=== PATIENT | male | born 1985 | race Caucasian/White ===

== ENCOUNTER 2018-06-04 15:51 | Inpatient (IN) | payer MEDICARE, MEDICAID ==
[~2018-06-04] VITALS: Ht 175.3 cm; Wt 83.9 kg
[~2018-06-04 15:51] MED LIST: BENADRYL25 MG PO; ERYTHROMYCIN E3.5 G2 OP; KETOCONAZOLE60 GM TP; PREDNISONE 10 M10 MG PO; TRAZODONE HCL100 MG PO; TRIAM60 TP; ZYRTEC ITCHY EYE5 ML OP
[2018-06-04 16:02] VITALS: BP 116/79
[2018-06-04 16:47] LABS: ABSOLUTE LYMPHOCYTES 1.4 thou/uL (0.8-5.3); ABSOLUTE MONOCYTES 0.8 thou/uL (0.0-1.2); ABSOLUTE NEUTROPHILS 2.7 thou/uL (1.6-8.1); BASOPHILS 0.2 %; EOSINOPHILS 0.2 %; HEMATOCRIT 39.9 % (42.0-52.0); HEMOGLOBIN 13.7 gm/dL (14.0-18.0); LYMPHOCYTES 27.9 %; MCHC 34.2 g/dL (28.0-37.0); MCV 90.7 fL (80.0-100.0); MONOCYTES 17.1 %; MPV 8.2 fl. (7.2-11.1); NUCLEATED RBCS 0 /100WBC; PLATELET COUNT* 106 thou/uL (150-400); POLYS 54.6 %; RDW-CV 12.7 % (10.5-14.5); WBC 4.9 thou/uL (4.0-11.0)
[2018-06-04 16:51] LABS: CALCIUM 9.1 mg/dL (8.5-10.1); CREATININE 1.3 mg/dL (0.6-1.3); POTASSIUM 3.6 mmol/L (3.5-5.1)
[2018-06-04 16:55] LABS: APTT 31.3 Seconds (25.0-31.3); INR 1.1; PROTIME 10.9 Seconds (9.20-11.50)
[2018-06-04 16:56] LABS: ALBUMIN 3.3 g/dL (3.4-5.0); TOTAL BILIRUBIN 0.6 mg/dL (<0.1-1.0); TOTAL PROTEIN 7.3 g/dL (6.4-8.2)
[2018-06-04 17:57] LABS: ESR (SEDRATE) 53 mm/hr (0-15)
[2018-06-04 19:11] LABS: URINE BLOOD NEGATIVE (Negative); URINE CLARITY CLEAR; URINE COLOR YELLOW; URINE GLUCOSE-RANDOM NEGATIVE (Negative); URINE KETONES 1+ (Negative); URINE LEUKOCYTES-REFLEX NEGATIVE (Negative); URINE NITRITE-REFLEX NEGATIVE (Negative); URINE PROTEIN NEGATIVE (Negative); URINE SPECIFIC GRAVITY 1.025 (1.005-1.030)
[2018-06-04 19:18] LABS: URINE BILIRUBIN 1+ (Negative)
[2018-06-04 19:19] LABS: ICTOTEST (BILI CONFIRMATORY) Negative (Negative)
[2018-06-04 19:42] VITALS: BP 118/73
[2018-06-04 20:39] VITALS: BP 105/78
--- NOTE | 2018-06-05 05:40 | NUR ---
REPORT RECIEVED FROM ER. PT ADMITTED TO ROOM. PT NON-VERBAL, MOTHER AND CAREGIVER AT BEDSIDE. MOTHER STATES PT IS A RESIDENT AT [facility]. PT TOOK PILL CRUSHED IN APPLESAUCE. ADMISSION DOCUMENTED. MEDS GIVEN PER E-MAR. PICTURES OF FEET TAKEN. IV PATENT, FLUIDS INFUSING. WILL CONTINUE WITH PLAN OF CARE.
[2018-06-05 07:20] VITALS: BP 113/65
[2018-06-05] MEDS ORDERED: ARIPIPRAZOLE30 MG PO (07:49)
[2018-06-05] MEDS ORDERED: ZYRTEC 10 MG TA10 MG PO (07:50)
[2018-06-05] MEDS ORDERED: CULTURELLE CAP1 EAC1 PO (07:50)
[2018-06-05] MEDS ORDERED: DEPAKOTE ER500 MG PO (07:51)
[2018-06-05] MEDS ORDERED: VITAMIN D1000 UNI1 PO (07:53)
[2018-06-05] MEDS ORDERED: PAXIL30 MG PO (07:53)
[2018-06-05 08:23] LABS: HEMATOCRIT 41.4 % (42.0-52.0); HEMOGLOBIN 14.2 gm/dL (14.0-18.0); MCHC 34.4 g/dL (28.0-37.0); RBC 4.6 mil/uL (4.50-6.00); WBC 4.9 thou/uL (4.0-11.0)
[2018-06-05 08:37] LABS: ALBUMIN 3.1 g/dL (3.4-5.0); CALCIUM 8.9 mg/dL (8.5-10.1); CREATININE 1.1 mg/dL (0.6-1.3); POTASSIUM 4.5 mmol/L (3.5-5.1); TOTAL BILIRUBIN 0.5 mg/dL (<0.1-1.0); TOTAL PROTEIN 7.5 g/dL (6.4-8.2)
[2018-06-05] MEDS ORDERED: EUCERIN ORIGIN250 ML TOP (08:59)
[2018-06-05] MEDS ORDERED: KETOCONAZOLE15 GM TOP (09:00)
[2018-06-05] MEDS ORDERED: NIZORAL120 ML TOP (09:00)
[2018-06-05] MEDS ORDERED: HYDROCORTISON28.4 G5 TOP (09:02)
[2018-06-05] MEDS ORDERED: DAIRY AID3000 UNIT PO (09:03)
--- NOTE | 2018-06-05 10:47 | EKG ---
[place] [address] ELECTROCARDIOGRAM REPORT Name: MARIA L SIDDIQUI Room: [address] ADM IN [facility].#: [id number] Admission: 06/04/18 Attend Phys: Yuly Isaacs MD Discharge: Date of : 87 Report #: [id number] THIS REPORT FOR: //name// [facility] ED Test Date: 2018-06-04 Test Time: 18:17:44 Pat Name: MARIA L SIDDIQUI Department: Room: [facility] Gender: M Credit Underwriter: MS : 1985 Requested By: Nora Bryant Order Number: [id number] MD: Augustine Kilpatrick Measurements Intervals [place] Rate: 86 P: 128 LA: 170 QRS: 151 QRSD: 99 T: 167 QT: 355 QTc: 425 Interpretive Statements Right and left arm electrode reversal, interpretation assumes no reversal Sinus rhythm Consider right ventricular hypertrophy Abnormal T, consider ischemia, lateral leads Baseline wander in lead(s) V1,V2 No previous ECG available for comparison Electronically Signed On 06-05-2018 10:47:35 [employer] PROFESS[employer] by Augustine Kilpatrick [email or web address] <ELECTRONICALLY SIGNED> By: Augustine Kilpatrick MD, FAC 06/05/18 1047 1817 16 Augustine Kilpatrick MD, [facility] /EPI
--- NOTE | 2018-06-05 10:52 | NUR ---
Nutrition: Consult received for "lactose intolerant." Pt is autistic, nonverbal. No education on lactose presumed. Likely consult was meant for kitchen to recieve as diet order - RD will add lactose-free to diet order. Albumin 3.1. Wt: 185#. Pt from [facility]. Low nutrition risk.
--- NOTE | 2018-06-05 15:04 | NUR ---
SPOKE TO THE PATIENT'S MOTHER AND CAREGIVER TO DISCUSS THE PATIENT'S HOME SITUATION, DISCHARGE PLANNING, AND TO INFORM OF THE ROLE OF CM. PATIENT IS AUTISTIC AND NON-VERBAL. PATIENT WILL HAVE AIRCRAFT MECHANIC AT BEDSIDE 27/11 DURING STAY. PATIENT RESIDE AT [facility] AND THE CAREGIVERS ASSIST WITH BATHING, AND PATIENT ABLE TO DRESS HIMSELF. PATIENT DOES NOT USE ANY DME. PATIENT'S MOTHER INFORMS THAT SHE PLANS FOR THE PATIENT TO RETURN TO THE [facility] AT D/C. CM WILL REMAIN AVAILABLE TO ASSIST AND FOLLOW NEEDED.
[2018-06-05 16:05] VITALS: BP 113/65
--- NOTE | 2018-06-05 16:54 | NUR ---
ASSESSMENT COMPLETE. PT ALERT AND RESPONSIVE TO VOICE AND TOUCH. PT IS NONVERBAL, CAREGIVER AND MOTHER AT BEDSIDE. PT TAKES MEDICATIONS WITH APPLESAUCE. PT NOT APPEARING TO BE IN PAIN. SLEPT MOST OF THE DAY. MUKESH SATS ON ROOM AIR, VSS. SURGERY CONSULT FOR BIOPSY OF LEFT FOOT, DONE AT BEDSIDE AROUND [address] CADE. BIOPSY SENT TO LAB. HEMATOLOGY CONSULTED WELL, STILL HAS NOT ROUNDED TODAY. GAUZE AND TEGADERM DRY AND INTACT TO LEFT FOOT. VASCULITITS TO BILAT FEET NOTED. PT HAS IV FLUIDS INFUSING. PT IS UP STANDBY ASSIST, VOIDING WITHOUT DIFFICULTY. PT TOLERATING MEALS, NO N/V. SEE ASSESSMENT AND VITALS FOR OTHER DETAILS. CALL LIGHT WITHIN REACH, WILL CONTINUE PLAN OF CARE
[2018-06-05 20:05] VITALS: BP 113/72
[2018-06-05 21:11] LABS: COMPLEMENT-C4 34 mg/dL (14-44)
--- NOTE | 2018-06-06 06:06 | NUR ---
PT SLEPT MOST OF SHIFT. ASSESSMENT DOCUMENTED. MEDS GIVEN PER E-MAR. IV PATENT, FLUIDS INFUSING. PT STARTED KICKING FEET AND MOANING LIKE HE WAS IN PAIN, DR NOTIFIED, ORDERS RECIEVED. MOTHER AT BEDSIDE ALL SHIFT. FALL PRECAUTIONS IN PLACE. PTS MOTHER AND MINTURNY HOUSE REQUESTING PT HAVE 24 HOUR SITTER IN ROOM. WILL CONTINUE WITH PLAN OF CARE.
--- NOTE | 2018-06-06 06:59 | NUR ---
FAMILY FRIEND OF PATIENT STATED THAT THE PATIENTS EYES HAVE GOTTEN BIGGER AND BULGING OVER TIME AND IS ASKING IT PATIENT MIGHT HAVE THYROID ISSUES CAUSING ALL OF THIS.
[2018-06-06 08:45] VITALS: BP 115/80
[2018-06-06 08:54] LABS: HEMOGLOBIN 13.7 gm/dL (14.0-18.0); MCH 31.3 pg (26.0-34.0); MCHC 34.2 g/dL (28.0-37.0); MCV 91.4 fL (80.0-100.0); MPV 9.4 fl. (7.2-11.1); RBC 4.38 mil/uL (4.50-6.00); RDW-CV 13.2 % (10.5-14.5); WBC 8.5 thou/uL (4.0-11.0)
[2018-06-06 09:06] LABS: ALBUMIN 2.9 g/dL (3.4-5.0); CALCIUM 8.3 mg/dL (8.5-10.1); CREATININE 1.1 mg/dL (0.6-1.3); MAGNESIUM 2.5 mg/dL (1.8-2.4); POTASSIUM 4.8 mmol/L (3.5-5.1); TOTAL BILIRUBIN 0.2 mg/dL (<0.1-1.0); TOTAL PROTEIN 6.6 g/dL (6.4-8.2)
[2018-06-06] MEDS ORDERED: PREDNISONE 10 M10 MG PO (11:43)
[2018-06-06] MEDS ORDERED: TRIPLE ANTIBIOT28 G2 TOP (11:43)
--- NOTE | 2018-06-06 12:20 | NUR ---
Pt to dc home to snf today. SW spoke with pt guardian/mother and provided Rheumatologists in the area. Pt mother was thankful for the information and also said that she would provide info to snf who will assist with scheduling an appt.
[2018-06-06 13:39] VITALS: BP 115/80
--- NOTE | 2018-06-06 15:56 | NUR ---
PATIENT DISCHARGED TO HOME. DISCHARGE PAPERS REVIEWED AND SIGNED WITH MOTHER. CAREGIVERS AT BEDSIDE, COPY OF CHART, PRESCRIPTIONS AND DISCHARGE INSTRUCTIONS GIVEN. IV REMOVED. NO OTHER CONCERNS/COMPLAINTS VOICED AT THIS TIME. PATIENT TAKEN BY BETTY TO EXIT. LEFT WITH MOTHER.
--- NOTE | 2018-06-07 11:09 | CON ---
[facility] [address] [place] [address] CONSULTATION Name: MARIA L SIDDIQUI Room: [address] IN .R.#: [id number] Admission: 06/04/18 Attend Phys: Yuly Isaacs MD Discharge: 06/06/18 Date of : 87 Report #: [id number] THIS REPORT FOR: //name// CC: Yuly Isaacs Taya Kimberlee DATE OF SERVICE: 06/06/2018 REASON FOR CONSULTATION: Thrombocytopenia. REQUESTING PHYSICIAN: Yuly Isaacs M.D. HISTORY OF PRESENT ILLNESS: The patient is a 32-year-old gentleman with autism and nonverbal, who was brought to the hospital from the LT living facility after he was noted to have a red rash on his feet. He was admitted to the hospital and diagnosis of vasculitis was given. The patient was started on IV steroids. He was found to have thrombocytopenia. Hematology consult is requested. This morning, since he is doing well, he had a skin biopsy done. His rash is getting much better. Mother is at bedside who is giving me history. He does not have complaints of pain apparently, does not have a history of lupus or any autoimmune disease, although mother states that his face and cheeks were "red" only on ER and after he was started on steroids, symptoms resolved. He does not have fevers or chills. PAST MEDICAL HISTORY: Significant for autism and nonverbal. SOCIAL HISTORY: Tobacco use: Never smoker. Alcohol use: No. REVIEW OF SYSTEMS: Unable to obtain. PHYSICAL EXAMINATION: GENERAL: Reveals mildly overweight young man, not in acute distress. VITAL SIGNS: Blood pressure 113/72, heart rate is 74, temperature 96.8 and respirations 18. HEENT: Does not reveal thrush. HEART: Normal S1 and S2. LUNGS: Clear. ABDOMEN: Soft. No splenomegaly on physical exam, although abdomen is somewhat obese. Difficult to palpate. EXTREMITIES: Exam reveals purpuric rash on the proximal, mid, distal half of feet. No other rash. No joint swelling or effusions are noted. LABORATORY DATA: White count 8.5, hemoglobin 13.7 and platelets 121. Sodium 140, potassium 4.8, BUN 21 and creatinine 1.1. Lupus panel is pending. C3 181, RF 11.5, C4 74 and CRP 66.8 and on admission is 163.[address]. [place] [id number] CONSULTATION Name: MARIA L SIDDIQUI Kimberly Room: [address]#: [id number] Admission: 06/04/18 Attend Phys: Yuly Isaacs MD Discharge: 06/06/18 Date of : 87 Report #: [id number] ASSESSMENT AND PLAN: 1. Thrombocytopenia secondary to underlying process, most likely vasculitis/autoimmune disease, platelets are improving with treatment of underlying disease, specifically steroids. 2. Vasculitis, skin biopsy pending. I agree with management. Do not have any other suggestion at this point. The patient has Rheumatology followup and he is discharged from the hospital. Thank you very much for allowing me to participate in care of this patient. <ELECTRONICALLY SIGNED> By: Aria Elias MD 06/07/18 1109 1000 28Aria Elias MD /nt
[2018-06-07 11:12] LABS: ANA INTERPRETATION Negative (Negative)
--- NOTE | 2018-06-10 14:06 | PATH ---
[facility] [address] [place] [address] PATHOLOGY RPT PROCEDURE Name: MARIA L HOLLINS Room: [address] IN ..#: [id number] Admission: 06/04/18 Date of : 87 Discharge: 06/06/18 Report #: [id number] Path Case #: [id number] [facility] Accession Number: [id number] . 01 Material submitted: . BIOPSY LEFT DORSAL FOOT . 01 Clinical history: . Vasculitis, thrombocytopenia. . 02 Diagnosis: Skin, left dorsal foot, biopsy: - Leukocytoclastic vasculitis (see comment). (DESMOND:ivania; 06/10/2018) MBR/06/10/2018 . 02 Comment: On reviewing the history and physical attached to the requisition, the patient on physical exam has a rash on his dorsal feet described as flat, confluent with petechia noted proximally. The patient presented with a rash on his bilateral feet with associated fever. . Block A1 was also evaluated with additional deeper levels, as well as a PAS stain for fungus, performed with an appropriate positive control, which is negative. . 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 . Special stain: PAS fungus . (SAS:ivania; 06/10/2018) . 02 Electronically signed: . Audrey Yuan MD, Pathologist NPI- [id number] . 01 Gross description: . Received in formalin labeled "Maria L Hollins, biopsy left dorsal foot" is an unoriented ellipse of pink-cao skin measuring 0.6 x 0.4 x 0.4 cm. The skin surface is grossly unremarkable without a definitive lesion. The margin is inked and the specimen is sectioned into 4 pieces. The specimen is submitted in cassettes A1-A2, with the tips placed in A2. ([facility]; 06/06/2018) SYC/SYC . 02 Microscopic: . Multiple levels and additional requested [place] [address] PATHOLOGY RPT PROCEDURE Name: MARIA L HOLLINS Kimberly Room: [address] IN ..#: [id number] Admission: 06/04/18 Date of : 87 Discharge: 06/06/18 Report #: [id number] Path Case #: [id number] excisional biopsy of skin shows situated around small vessels of the capillary-venular vascular plexus an infiltrate of neutrophils throughout the full thickness of the biopsy. Neutrophils undergo degeneration of nuclei (leukocytoclasia) and there are perivascular deposits of fibrin. Extravasated erythrocytes are present around vessels and in between collagen bundles along with scattered pigmented dermal macrophages. . 02 Pathologist provided ICD-10: L95.8 . 02 CPT . 218030, [id number] Specimen Comment: A courtesy copy of this report has been sent to Specimen Comment: [phone]. Specimen Comment: Report sent to Performed at: [address], [place] [id number] MD Mark Aguila MD Phone: [phone] Performed at: 02 [facility] [address] [address] [id number] MD Audrey Yuan MD Phone: [phone]
== END 2018-06-06 14:05 | disposition home or self-care (01) | DRG 607 ==
LOC: M.ERS 15:51 → M.TBA-ER 17:32 → M.3W 17:32
PROVIDERS: Nurse Practitioner Family; ADMIT Internal Medicine
PROC: 0JBR3ZX Excision of Left Foot Subcutaneous Tissue and Fascia, Percutaneous Approach, Diagnostic (ICD-10-PCS; principal; 2018-06-05)
DX: L95.9 Vasculitis limited to the skin, unspecified (principal); F84.0 Autistic disorder; D69.6 Thrombocytopenia, unspecified; Z79.899 Other long term (current) drug therapy; Z88.2 Allergy status to sulfonamides